=== PATIENT | male | born 1985 | race Caucasian/White ===

== ENCOUNTER 2019-08-27 00:26 | Emergency (ER) | payer OTHER ==
--- NOTE | 2019-08-27 00:36 | EDM.PDOC ---
ED HPI GENERAL MEDICAL PROBLEM - General Chief Complaint: Head Injury Stated Complaint: FELL AND HIT HEAD Time Seen by Provider: 08/27/19 00:28 - History of Present Illness INITIAL COMMENTS - FREE TEXT/NARRATIVE: 33-year-old male presents the emergency room with a head injury. The patient was walking on some slippery cement and slipped and fell hitting his head on the ground he does not remember what happened after that. He was not clearly knocked out however. Patient states he has been drinking today. He is doing okay at this time no nausea or vomiting. He is unsure when his last tetanus shot was. He has a large laceration above his left eye. Patient denies any other injury or discomfort associated with this most unfortunate mishap. Head Pain Score (Numeric/FACES): 2 - Related Data Allergies Allergy/AdvReac Type Severity Reaction Status Date / Time No Known Allergies Allergy Verified 08/27/19 00:43 Home Meds: Home Meds . [No Known Home Meds] 08/27/19 [History] ED ROS GENERAL - Review of Systems Review Of Systems: See Below Constitutional: Reports: No Symptoms HEENT: Reports: No Symptoms Respiratory: Reports: No Symptoms Cardiovascular: Reports: No Symptoms Endocrine: Reports: No Symptoms GI/Abdominal: Reports: No Symptoms : Reports: No Symptoms Musculoskeletal: Denies: Neck Pain, Shoulder Pain, Arm Pain, Back Pain Skin: Reports: No Symptoms Neurological: Reports: Headache Psychiatric: Reports: No Symptoms Hematologic/Lymphatic: Reports: No Symptoms Immunologic: Reports: No Symptoms ED EXAM, HEAD INJURY - Physical Exam Exam: See Below Exam Limited By: No Limitations General Appearance: Alert, No Apparent Distress Head: Other (Laceration in his left eyebrow.) Nexus Criteria: Evidence of Intoxication. No: Posterior, Midline Cervical Tenderness, Altered Level of Consciousness, Focal Neurological Deficit, Painful Distraction Injuries Eyes: Bilateral Eye: EOMI, Normal Inspection, PERRL Ears: Normal External Exam, Normal Canal, Hearing Grossly Normal, Normal TMs Nose: Normal Inspection, Normal Mucousa, No Blood Throat/Mouth: Normal Inspection, Normal Lips, Normal Teeth, Normal Gums, Normal Oropharynx, Normal Voice, No Airway Compromise Neck: Non-Tender, Full Range of Motion, Normal Alignment, Normal Inspection Respiratory: No Respiratory Distress, Lungs Clear, Normal Breath Sounds, No Accessory Muscle Use, Chest Non-Tender Cardiovascular: Normal Peripheral Pulses, Regular Rate, Rhythm, No Edema, No Gallop, No JVD, No Murmur, No Rub GI/Abdominal Exam: Normal Bowel Sounds, Soft, Non-Tender Back Exam: Normal Inspection. No: CVA Tenderness (L), CVA Tenderness (R) Neurologic: vegetable preparer II-XII nml As Tested, No Motor/Sensory Deficits, Alert, Normal Mood/Affect, Oriented x 3 - Garfield Coma Score Best Eye Response (Garfield): (4) Open Spontaneously Best Verbal Response (Garfield): (5) Oriented Best Motor Response (Guillermina): (6) Obeys Commands ED LACERATION/WOUND & MIRTA PROC - Laceration/Wound Repair Left Face Lac/wound length in cm: 5 Appearance: Subcutaneous Distal NVT: Neuro & Vascular Intact Anesthetic Type: Local Local Anesthesia - Lidocaine (Xylocaine): 1% Plain Local Anesthetic Volume: 2cc Skin Prep: Saline Exploration/Debridement/Repair: Wound Explored, In a Bloodless Field, Explored to Base Suture Size: 4-0 # of Sutures: 10 Suture Type: Nylon Suture Size: 3-0 Repaired with: Vicryl Suture Size: 3-0 # of Sutures: 1 Tetanus Status Addressed: Yes (Updated) Complications: No Progress/Comments: Patient received 2 cc of 1% lidocaine without epinephrine infiltrated around the laceration. The laceration was irregularly shaped and had a Y at the medial margin. A single deep stitch was placed bringing all margins together on the medial side the lateral side laid into place. Then 10 simple stitches of 4-0 nylon were placed yielding very nice wound approximation. Course - Vital Signs Last Recorded V/S: Last Vital Signs Temp 36.2 C 08/27/19 00:29 Pulse 108 H 08/27/19 00:29 Resp 16 08/27/19 00:29 BP 140/95 H 08/27/19 00:29 Pulse Ox 98 08/27/19 00:29 - Orders/Labs/Meds Orders: Active Orders 24 hr Category Date Time Status Vaccines to be Administered [RC] PER UNIT ROUTINE Care 08/27/19 00:42 Active Head wo Cont [CT] Stat Exams 08/27/19 00:37 Taken Meds: Medications Discontinued Medications Generic Name Dose Route Start Last Admin Trade Name Freq PRN Reason Stop Dose Admin Diphtheria/Tetanus/Acell Pertussis 0.5 ml 08/27/19 00:42 08/27/19 00:58 Adacel IM 08/27/19 00:43 0.5 ml .ONCE ONE Administration Lidocaine HCl 10 ml 08/27/19 00:37 08/27/19 00:58 Xylocaine 1% INJECT 08/27/19 00:38 10 ml ONETIME ONE Administration - Re-Assessments/Exams Free Text/Narrative Re-Assessment/Exam: 08/27/19 02:[address] was checked and ultimately was unremarkable for acute intracranial changes. Departure - Departure Time of Disposition: 02:21 Disposition: Home, Self-Care 01 Clinical Impression: Head injury, Facial laceration - Discharge Information Referrals: PCP,None [Primary Care Provider] - Forms: ED Department Discharge Additional Instructions: Return to the emergency room with any questions problems or unusual behavior. Follow-up with your regular healthcare provider for suture removal in approximately 7 days. Also discuss how you are doing after the head injury. Follow-up sooner if you are having problems. Return immediately to the emergency room with any unusual behavior or any concerns of infection at the laceration site. Keep the laceration site absolutely clean and dry for the next 48 hours. After 48 hours he can let water gently run over the area and then dab dry no scrubbing. Sepsis Event Note (ED) - Focused Exam Vital Signs: Vital Signs Temp Pulse Resp BP Pulse Ox 08/27/19 00:29 36.2 C 108 H 16 140/95 H 98 - My Orders Last 24 Hours: My Active Orders 08/27/19 00:37 Head wo Cont [CT] Stat 08/27/19 00:42 Vaccines to be Administered [RC] PER UNIT ROUTINE - Assessment/Plan Last 24 Hours: My Active Orders 08/27/19 00:37 Head wo Cont [CT] Stat 08/27/19 00:42 Vaccines to be Administered [RC] PER UNIT ROUTINE
[2019-08-27] MEDS ORDERED: Lidocaine 1% 10 ML MDV INJECT ONE (00:37)
[2019-08-27] MEDS ORDERED: Diphtheria,Pertussis(Acell),Tetanus Vaccine 0.5 ML Syringe IM ONE (00:42)
--- NOTE | 2019-08-27 11:09 | CT ---
Head CT Technique: Multiple axial sections through the brain were obtained. Comparison: No previous intracranial imaging is available. Findings: Ventricles along with basal cisterns and sulci over the convexities are within normal limits for the patient's age. No abnormal parenchymal densities are seen. No evidence of intracranial hemorrhage. No midline shift or mass-effect is seen. Bone window settings were reviewed. Mild mucosal thickening seen within the frontal and ethmoid sinuses. Small retention cyst is noted within the right sphenoid sinus. No air-fluid levels are seen within the paranasal sinuses. Mastoid sinuses are clear. No acute calvarial abnormality is appreciated. Soft tissue injury seen within the left frontal scalp in the area of the superior orbital ridge. Impression: 1. Mild sinus findings which are felt to be chronic. 2. Soft tissue injury as noted above. 2. No acute intracranial abnormality is seen. No acute calvarial abnormality is appreciated. Diagnostic code #2 This report was dictated in MDT I agree with preliminary report from [facility], finalized on 08/27/19, 2:34 AM Central Daylight Time
== END 2019-08-27 02:35 | disposition home or self-care (01) ==
LOC: JD.ED 00:26
DX: S09.90XA Unspecified injury of head, initial encounter (principal); S01.112A Laceration without foreign body of left eyelid and periocular area, initial encounter; Z23 Encounter for immunization; W01.10XA Fall on same level from slipping, tripping and stumbling with subsequent striking against unspecified object, initial encounter
CPT/HCPCS: 12042; 70450; 90471; 90715; 99283; J2001; 12013; 99282